=== PATIENT | female | born 1975 | race Caucasian/White ===

== ENCOUNTER 2017-06-22 20:32 | Emergency (ER) | payer OTHER ==
[~2017-06-22] VITALS: Ht 160 cm; Wt 59.0 kg
[~2017-06-22 20:32] MED LIST: CLEOCIN HCL150 MG PO; MOBIC7.5 MG PO
[2017-06-22] MEDS ORDERED: TUSSIONEX PENN115 ML PO (22:01)
== END 2017-06-22 22:23 | disposition home or self-care (01) ==
LOC: ER 20:32
DX: J06.9 Acute upper respiratory infection, unspecified (principal); D68.0 Von Willebrand disease; Z88.6 Allergy status to analgesic agent

== ENCOUNTER 2018-03-20 05:02 | Emergency (ER) | payer OTHER ==
[~2018-03-20] VITALS: Ht 160 cm; Wt 63.5 kg
[~2018-03-20 05:02] MED LIST changes: +TUSSIONEX PENN115 ML PO
[2018-03-20 05:06] VITALS: BP 125/76
[2018-03-20] MEDS ORDERED: CLEOCIN HCL150 MG PO (05:19)
[2018-03-20] MEDS ORDERED: MAGIC MOUTHWASH SWISH&SPIT (05:28)
== END 2018-03-20 05:30 | disposition home or self-care (01) ==
LOC: ER 05:02
DX: K04.7 Periapical abscess without sinus (principal); L03.211 Cellulitis of face; Z88.6 Allergy status to analgesic agent